=== PATIENT | male | born 1960 | race Caucasian/White ===

== ENCOUNTER 2022-05-03 12:48 | Inpatient (IN) ==
[2022-05-03 13:33] LABS: Basophils # (auto) 0.06 K/uL (0-0.2); Basophils % (auto) 0.9 %; Eosinophils # (auto) 0.16 K/uL (0-0.50); Eosinophils % (auto) 2.5 %; Hematocrit (blood only) 48.2 % (40.1-51.0); Immature Granulocytes # (auto) 0.05 K/uL (0.00-0.02); Immature Granulocytes % (auto) 0.8 %; Lymphocytes # (auto) 2.08 K/uL (1.2-3.4); Lymphocytes % (auto) 32.9 %; Mean Corpuscular Hemoglobin 29.8 pg (25.0-34.0); Mean Corpuscular Hgb Conc 35.3 g/dL (32.0-36.0); Mean Corpuscular Volume 84.6 fL (80.0-100.0); Mean Platelet Volume 9.5 fL (9.4-12.4); Monocytes # (auto) 0.52 K/uL (0.24-0.82); Monocytes % (auto) 8.2 %; Neutrophils # (auto) 3.45 K/uL (1.4-6.5); Neutrophils % (auto) 54.7 %; Platelet Count 201 K/uL (130-400); RDW Coefficient of Variation 11.5 % (11.5-14.5); RDW Standard Deviation 35.2 fL (36.4-46.3); White Blood Count 6.32 K/ul (4.8-10.8)
[2022-05-03 14:00] LABS: Albumin Globulin Ratio 1.6 (0.9-2); Albumin Level 4.2 gm/dl (3.4-5.0); BUN Creatinine Ratio 20.5 (10-20); Bilirubin,Total 0.5 mg/dl (0.2-1.0); Calcium 9.6 mg/dl (8.5-10.1); Creatinine Clr Calc Pharmacy 76.6 ml/min; Est GFR (Non-African American) 66.4 ml/min; Globulin 2.7 gm/dl (2.5-4.0); Potassium 4.1 mmol/L (3.5-5.1); Total Protein 6.9 gm/dl (6.0-8.3)
[2022-05-03] MEDS ORDERED: MoRPHine SULFATE 4 MG/ML 1 ML CARP\\VIAL IV STA (15:53)
[2022-05-03] MEDS ORDERED: ONDANSETRON INJ 2 MG/ML 2 ML VIAL IV STA (15:53)
[2022-05-03] MEDS ORDERED: MoRPHine SULFATE 10 MG/ML CARP/VIAL IV STA (17:35)
--- NOTE | 2022-05-03 17:40 | Emergency Department Note ---
History of Present Illness General Chief Complaint: Pain (Generalized) Stated Complaint: REF BY DOCTOR, PAIN Time Seen by Provider: 05/03/22 15:06 History of Present Illness Provider Complaint: back pain Onset (ago): week(s) 2 Duration: progressively worsening Similar Symptoms Previously: No Location: lumbar spine Quality: + sharp, + dull, + crushing, + aching, + spasming and + throbbing Radiation: none Severity: severe Relieved By: + immobilization Exacerbated By: + movement and + walking Context: no trauma, no history of kidney stones or no IV drug use Associated symptoms: no weakness, no numbness, no increased urinary urgency, no increased urinary frequency, no urinary incontinence, no fecal incontinence, no a change in bowel habits, no fever, no chills, no abdominal pain or no hematuria Patient reports he was seen in the emergency department at [place] yesterday had an MRI done follow-up with Dr. Charles's office who referred him to the emergency department today. Home Medications Medication Instructions Recorded Confirmed Type cyclobenzaprine 10 mg tablet 10 mg PO TID PRN Muscle Spasm 05/03/22 05/03/22 History gabapentin 300 mg capsule 300 mg PO TID 05/03/22 05/03/22 History hydrocodone 5 mg-acetaminophen 325 1 tab PO Q6 PRN Pain 05/03/22 05/03/22 History mg tablet Allergies Allergy/AdvReac Type Severity Reaction Status Date / Time No Known Allergies Allergy Unverified 05/03/22 17:47 Past Med/Surg History Medical History No pertinent family history No pertinent past medical history Surgical History No pertinent past surgical history Social History Smoking Status: Never smoker Feels Safe at Home: Yes Physical Exam Vital Signs Vital Signs - 24 hr 05/03/22 12:56 05/03/22 15:48 05/03/22 17:00 Temperature 37 C Temperature Source Temporal Artery Scan Pulse Rate 83 Pulse Rate [Finger] 73 62 Respiratory Rate 20 18 18 Respiratory Effort / Characteristics Non-Labored Spontaneous Non-Labored Non-Labored Respiratory Depth Normal Normal Normal Respiratory Pattern Regular Blood Pressure 148/84 H Blood Pressure [Right Arm] 138/79 123/78 Blood Pressure Mean 105 Blood Pressure Mean [Right Arm] 98 93 Blood Pressure Position Sitting Pulse Oximetry 96 97 93 Oxygen Delivery Method Room Air Sepsis Recent Fever Within 48 Hours No Sepsis New/Unexplained Change in Mental Status N/A Sepsis Action Taken by Nursing No Action Required Physical Exam GENERAL: He is oriented to person, place, and time. He appears well-developed and well-nourished. He does not appear distressed. NECK: Normal range of motion. Neck supple. No JVD present. No spinous process tenderness present. No carotid bruit present. No rigidity. No tracheal deviation and normal range of motion present. No Brudzinski's sign and no Kernig's sign noted. CV: Normal rate, regular rhythm, normal heart sounds and intact distal pulses. There is no peripheral edema. Palpable radial pulses bue. PULM/CHEST: Effort normal and breath sounds normal. No respiratory distress. No stridor. He has no wheezes. He has no rales. ABD: The abdomen is soft. Bowel sounds are normal. He has no distension. No mass is present. There is no tenderness. There is no rebound, no guarding, no Mu rphy's sign and no tenderness at McBurney's point. Rovsig negative. MUSC/SKEL:No pain on palpation of the C or T-spine. Pain on palpation L-spine. NEURO: Motor and sensation grossly intact. No saddle anesthesias or paresthesias. Course Course 1506: The patient was evaluated in room Triage 2. A complete history and physica l exam was performed Administered Medications Discontinued Medications Morphine Sulfate (Morphine Sulfate 4 Mg/Ml 1 Ml Carp\Vial) 4 mg IV NOW STA Stop: 05/03/22 15:54 Last Admin: 05/03/22 16:12 Dose: 4 mg Documented By: BRANDY Ondansetron HCl (Ondansetron Inj 2 Mg/Ml 2 Ml Vial) 4 mg IV NOW STA Stop: 05/03/22 15:54 Last Admin: 05/03/22 16:12 Dose: 4 mg Documented By: BRANDY Medical Decision Making Laboratory Data Result diagrams: 05/03/22 13:20 05/03/22 13:20 Lab Results 05/03/22 05/03/22 05/03/22 Range/Units 13:20 13:20 16:56 WBC 6.32 (4.8-10.8) K/ul RBC 5.70 (4.63-6.08) M/uL Hgb 17.0 (14.0-18.0) g/dl Hct 48.2 (40.1-51.0) % MCV 84.6 (80.0-100.0) fL MCH 29.8 (25.0-34.0) pg MCHC 35.3 (32.0-36.0) g/dL RDW Std Deviation 35.2 L (36.4-46.3) fL RDW Coeff of [place] 11.5 (11.5-14.5) % Plt Count 201 (130-400) K/uL MPV 9.5 (9.4-12.4) fL Immature Gran % (Auto) 0.8 % Neut % (Auto) 54.7 % Lymph % (Auto) 32.9 % [place] % (Auto) 8.2 % Eos % (Auto) 2.5 % Baso % (Auto) 0.9 % Neut # (Auto) 3.45 (1.4-6.5) K/uL Lymph # (Auto) 2.08 (1.2-3.4) K/uL [place] # (Auto) 0.52 (0.24-0.82) K/uL Eos # (Auto) 0.16 (0-0.50) K/uL Baso # (Auto) 0.06 (0-0.2) K/uL Immature Gran # (Auto) 0.05 H (0.00-0.02) K/uL Sodium 136 (136-145) mmol/L Potassium 4.1 (3.5-5.1) mmol/L Chloride 104 (98-107) mmol/L Carbon Dioxide 26 (21-32) mmol/L Anion Gap 6 (3-11) BUN 24 H (6-23) mg/dl Creatinine 1.17 (0.6-1.4) mg/dl Est Cr Clr Drug Dosing 76.6 ml/min Est GFR ( Amer) 77.0 ml/min Est GFR (Non-Af Amer) 66.4 ml/min BUN/Creatinine Ratio 20.5 H (10-20) Glucose 99 (70-99(Fasting)) mg/dl Calcium 9.6 (8.5-10.1) mg/dl Total Bilirubin 0.5 (0.2-1.0) mg/dl AST 22 (13-39) U/L ALT 29 (7-52) U/L Alkaline Phosphatase 69 (34-104) U/L Total Protein 6.9 (6.0-8.3) gm/dl Albumin 4.2 (3.4-5.0) gm/dl Globulin 2.7 (2.5-4.0) gm/dl Albumin/Globulin Ratio 1.6 (0.9-2) SARS-CoV-2, RNA, NAAT NEGATIVE (NEGATIVE) MDM Narrative Vital signs stable. External medical records were obtained and the patient had an MRI done at [facility] yesterday. MRI of the lumbar spine without contrast impression shows: lumbar degenerative disc disease most pronounced at L3-L4 L3-L4 disc bulge and right paracentral disc extrusion with extruded fragment migrates caudally along the right posterior border of the L4 vertebral body. Impingement upon the right transiting L4 nerve root with mild to moderate narrowing of the bilateral L3-L4 neural foramina. The study was read by Dr. Fleming on May 01, 2022. Discussed case with Dr. Charles and I read him the MRI reports creatinine. He states he will admit to his service and evaluate the patient for operative procedure tomorrow. Patient is agreement with the plan. Impression & Plan Bulging lumbar disc Discharge Plan Visit Data Chief Complaint: Pain (Generalized) Stated Complaint: REF BY DOCTOR, PAIN ED Provider: Paul Polanco Discharge Problem: Bulging lumbar disc Patient Disposition: Admitted As Inpatient Forms Stand Alone Forms: [facility] Prescriptions Prescriptions: No Action cyclobenzaprine 10 mg tablet 10 mg PO TID PRN (Reason: Muscle Spasm) prednisone 20 mg tablet 20 mg PO UD Rx Instructions: start 04/29/22 take 3 tablets daily x 3 days,then 2 tabs for 3 days,1 tablet for 3 days gabapentin 300 mg capsule 300 mg PO TID hydrocodone-acetaminophen 5-325 mg tablet 1 tab PO Q6 PRN (Reason: Pain) Referrals Referrals: Sergey Bernal M.D. [Primary Care Provider] -
[2022-05-03] MEDS ORDERED: NALOXONE HCL 0.4 MG/1 ML VIAL/CARP IV PRN (19:25)
[2022-05-03] MEDS ORDERED: ACETAMINOPHEN 1,000 MG/100 ML VIAL IV PRN (19:25)
[2022-05-03] MEDS ORDERED: HYDROmorphone INJ 0.5 MG/0.5 ML SYR IV PRN (19:25)
[2022-05-03] MEDS ORDERED: METOCLOPRAMIDE HCL INJ 5 MG/ML 2 ML VIAL IV PRN (19:25)
[2022-05-03] MEDS ORDERED: HYDROmorphone INJ 1 MG/ML SYRINGE IV PRN (19:25)
[2022-05-03] MEDS ORDERED: PROMETHAZINE HCL 12.5 MG in SODIUM CHLORIDE 0.9% 50 ML IV PRN (19:25)
[2022-05-03] MEDS ORDERED: traMADol HCL 50 MG TABLET PO PRN (19:25)
[2022-05-03] MEDS ORDERED: ONDANSETRON INJ 2 MG/ML 2 ML VIAL IV PRN (19:25)
[2022-05-03] MEDS ORDERED: ONDANSETRON 4 MG OD TAB PO PRN (19:25)
[2022-05-03] MEDS ORDERED: ACETAMINOPHEN 500 MG TAB PO PRN (19:25)
[2022-05-03] MEDS ORDERED: MAGNESIUM HYDROXIDE SUSP 30 ML UDC PO PRN (19:25)
[2022-05-03] MEDS ORDERED: LORazepam 2 MG/1 ML VIAL IV PRN (19:25)
[2022-05-03] MEDS: LACTATED RINGER'S 1,000 ML IV SCH (20:27)
--- NOTE | 2022-05-03 21:26 | XRay Report ---
XR chest 1V portable CLINICAL HISTORY: pre op TECHNIQUE: Single frontal radiograph of the chest was obtained. Comparison: None available at the time of this dictation. FINDINGS: No lines and tubes are seen. The cardiomediastinal silhouette is normal. The lungs are clear. No evid ence of pleural effusion or pneumothorax. IMPRESSION: No acute chest disease. ACT 112: Negative or not required by law. Electronically signed by: Frank Cao M.D. 05/03/2022 9:25 PM
--- NOTE | 2022-05-03 22:26 | Consultation Report ---
DATE OF CONSULTATION: 05/03/2022. CHIEF COMPLAINT: Severe back pain. HISTORY OF PRESENT ILLNESS: This is a 62-year-old male with no significant past medical history, who presents with back pain and ambulatory dysfunction. The patient states Sunday morning when he woke up, he could not get up from the bed because of severe back pain radiating to his right leg and looks like he went to [facility] and the MRI was done, which was showing disk bulge. Here he got admitted for spine surgery. Currently, the patient after receiving pain medication, he is feeling much better. He is able to move his legs. Denies any loss of sensation in the legs, no weakness in the legs, no incontinence of bowel or bladder. Afebrile. No recent heavy weight lifting or no injury. He says he used to work in the [employer] for 10 years. 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 The patient states that he is healthy. He goes for hunting and he is otherwise active. Resting comfortably currently. Denies any headache. No blurred visions, no earache, no runny nose, no sore throat, no cough, no difficulty swallowing. No chest pain, no shortness of breath, no nausea, no vomiting, no abdominal pain. Normal bowel and bladder movements. No hematuria or burning micturition. No blood in the stools or black stools. ALLERGIES: No known drug allergies. PAST MEDICAL HISTORY: None. PAST SURGICAL HISTORY: Appendectomy. MEDICATIONS: The patient states he is not taking any medications. FAMILY HISTORY: Denies any significant family history. SOCIAL HISTORY: No smoking. Alcohol, rarely. No drug use. REVIEW OF SYSTEMS: As per HPI. Rest of the review of systems is negative. PHYSICAL EXAMINATION: GENERAL: The patient is of moderate build, not in acute distress. VITAL SIGNS: Temperature 37, pulse 76, respiratory rate 18, blood pressure 122/77, oxygen 97% on room air. HEENT: Head is atraumatic. No facial droop. NECK: No JVD. No neck masses. CARDIOVASCULAR: S1 and S2 heard. Regular rate and rhythm. No murmur, no gallop. RESPIRATORY SYSTEM: Normal AP diameter. No accessory muscle use. No wheezing, crackles. ABDOMEN: Soft, bowel sounds present, nontender, no distention. CENTRAL NERVOUS SYSTEM: Alert and oriented. Speech is clear. No facial droop. Insight is good. Obeys simple commands. Moves extremities. EXTREMITIES: No edema, no erythema. MUSCULOSKELETAL: Bilateral straight leg test negative. LABORATORY DATA: WBC 6.3, hemoglobin 17, hematocrit 48.2, platelets 201. Sodium 136, potassium 4.1, chloride 104, bicarbonate 26, BUN 24, creatinine 1.1, serum glucose 99, calcium 9.6, total bilirubin 0.5, AST 22, ALT 29, alkaline phosphatase 69, total protein 6.9. SARS-CoV-2 rapid test negative. As per the ER, his MRI scan done at [facility] showed lumbar degenerative disk disease, most pronounced at L3-L4 and right paracentral disk extrusion with extruded fragment migrates caudally along the right posterior border of the L4 vertebral body, impingement upon the right transiting L4 nerve root with [id number] narrowing of the bilateral L3-L4 neural foramina. ASSESSMENT AND PLAN: This 62-year-old male presents with severe back pain and ambulatory dysfunction. 1. Severe back pain and ambulatory dysfunction. MRI down in the [facility] shows L3-L4 disk bulge and impingement of the right transiting L4 nerve root with [id number] narrowing of the bilateral L3-L4 neural foramina, . The patient has no significant medical history, otherwise he is active. Labs look okay,if preop chest x-ray and EKG are unremarkable should be at acceptable risk to proceed with surgery. Pain control, IV fluids, n.p.o. after midnight for now. 2. Deep venous thrombosis prophylaxis and disposition as per orthopedics. Job ID: [id number] [facility]
[2022-05-04] MEDS ORDERED: ceFAZolin 2000MG 2,000 MG/15 ML SYR IV SCH (06:00)
[2022-05-04] MEDS: LACTATED RINGER'S 1,000 ML IV SCH (07:47)
[2022-05-04] MEDS: oxyCODONE HCL IR 5 MG TAB (IMMEDIATE RELEASE) PO PRN ×2 (08:07→19:00)
--- NOTE | 2022-05-04 08:46 | History & Physical Report ---
Date of Service May 04, 2022 Assessment & Plan (1) Lumbar disc herniation with radiculopathy: Plan: Assessment lumbar disc herniation with radiculopathy. Plan at this time an MRI report has been provided. Described in distribution with caudal migration at L3-L4. This would be concordant with his pain patterns. As he is unable to ambulate and has severe pain he would be a candidate for surgical invention. It would require lumbar decompression discectomy at L3-L4. This may include possible fusion. Risk benefits pros cons alternatives were outlined in detail. I reviewed this with the patient and the at the bedside. We will make him n.p.o. after midnight plan for surgery tomorrow. Admission and Anticipated Discharge Date Admission Date: May 03, 2022 History of Present Illness Chief Complaint: Severe right leg pain with weakness Primary Care Provider: Sergey Bernal This a very pleasant 62-year-old man that presents with severe right leg pain and inability ambulate. He states been present for approximately 2 weeks and is worsened. He is not recall any specific trauma fall or event. 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 Pain involves the lumbosacral spine rating into the right buttock right leg and extending below the knee to the calf. Any weightbearing is intolerable. He gets some relief with his IV narcotics. He is admitted to the emergency room at least twice. Allergies Allergy/AdvReac Type Severity Reaction Status Date / Time No Known Allergies Allergy Unverified 05/03/22 17:47 Home Medications Medication Instructions Recorded Confirmed Type cyclobenzaprine 10 mg tablet 10 mg PO TID PRN Muscle Spasm 05/03/22 05/03/22 History gabapentin 300 mg capsule 300 mg PO TID 05/03/22 05/03/22 History hydrocodone 5 mg-acetaminophen 325 1 tab PO Q6 PRN Pain 05/03/22 05/03/22 History mg tablet Past Med/Surg History Medical History No pertinent family history No pertinent past medical history Surgical History No pertinent past surgical history Social History Smoking Status: Never smoker Hx Alcohol Use: No Hx Substance Use: No Preferred Language: [employer] Required: No Beliefs That Will Affect Care: None Current Living Situation: Spouse Other Information That Helps Us Care for You: No Feels Safe at Home: Yes Safety Concerns: Feels Safe At This Time Assistive Devices: None Physical Exam Physical Exam: On exam he is lying in bed. He has decreased sensation of the right thigh compared to the left to cold and light touch. He has plus out of 5 bilateral plantar flexion dorsiflexion extensor pollicis longus. He does exhibit severe tension signs with straight leg raising on the right as well as contralateral signs on the left. He is unable to get up and weight-bear on the right lower extremity secondary to pain. Results & Data Results & Data ([facility]) Vital Signs (Past 12 Hours) Vital Signs Temp Pulse Resp BP Pulse Ox O2 Del Method 05/04/22 07:17 36.7 C 53 L 16 129/80 98 Room Air 05/03/22 22:44 36.7 C 74 18 122/77 98 Room Air Code Status & VTE Plan VTE Prophylaxis Plan VTE Prophylaxis will be ordered: Yes
--- NOTE | 2022-05-04 13:30 | Hospitalist Progress Note ---
Date of Service May 04, 2022 Assessment & Plan (1) Lumbar disc herniation with radiculopathy: (2) Bulging lumbar disc: Plan: This is a 62-year-old male with no significant medical history presenting with lumbar back pain with radiculopathy. Seen and evaluated by Dr. Charles with recent outside hospital MRI report consistent with bulging lumbar disc with severe pain and plans for surgical intervention in a.m. Planned decompression discectomy at L3-L4 tomorrow morning N.p.o. after midnight IV fluids, pain control per primary service Preop chest x-ray and EKG without abnormality Revised cardiac risk and asked for preoperative risk score of 0 (3.9% risk) Thank you for this consultation. We will follow the patient with you during their hospital stay. You can reach a [facility] 20[facility]11 via [employer]. Admission and Anticipated Discharge Date Admission Date: May 03, 2022 Supervising Physician Co-Signing Physician Notes Patient seen and examined independently. Agree with above documentation by Mimi Rouse PA-C Patient is a 62-year-old male with no significant past medical history presents with lumbar radiculopathy. He is comfortable; pain controlled on current regimen. Is planned to undergo surgery tomorrow with decompression of L3-L4 and possible fusion by orthopedics. Will follow up during postoperative period. Subjective Patient seen and examined in 312. Still having lower back pain with radiation down right leg even at rest. Denies any paresthesias or weakness. Has never had a back surgery before. No fever, chills, lightheadedness, chest pain or shortness of breath, nausea, vomiting, abdominal pain, dysuria, diarrhea constipation. Review of Systems Review of Systems: At least ten systems reviewed and negative except as noted in the HPI. Physical Exam Physical Exam: Gen: WD/WN, NAD, lying in bed, A&Ox3 HEENT: Normocephalic, atraumatic, conjunctivae moist, sclerae anicteric, mucous membranes moist Lung: Clear to Auscultation bilaterally, no wheezes/rales/rhonchi Heart: Regular rate, regular rhythm, no murmurs, rubs, or gallops Abdomen: Soft, NT, ND +BS x 4 Extremities: +Lumbar spine TTP, 4/5 MINI in RLE, 5/5 LLE, no edema Skin: Warm, no rash Results & Data Results & Data ([place]) Vital Signs (Past 12 Hours) Vital Signs Temp Pulse Resp BP Pulse Ox O2 Del Method 05/04/22 07:17 36.7 C 53 L 16 129/80 98 Room Air Laboratory Results Short CBC 05/03/22 Range/Units 13:20 WBC 6.32 (4.8-10.8) K/ul Hgb 17.0 (14.0-18.0) g/dl Hct 48.2 (40.1-51.0) % Plt Count 201 (130-400) K/uL BMP 05/03/22 13:20 Sodium 136 Potassium 4.1 Chloride 104 Carbon Dioxide 26 BUN 24 H Creatinine 1.17 Glucose 99 Calcium 9.6 Liver Function 05/03/22 Range/Units 13:20 Total Bilirubin 0.5 (0.2-1.0) mg/dl AST 22 (13-39) U/L ALT 29 (7-52) U/L Alkaline Phosphatase 69 (34-104) U/L Albumin 4.2 (3.4-5.0) gm/dl Diagnostic Findings Chest X-Ray 05/03/22 20:23 XR chest 1V portable CLINICAL HISTORY: pre op TECHNIQUE: Single frontal radiograph of the chest was obtained. Comparison: None available at the time of this dictation. FINDINGS: No lines and tubes are seen. The cardiomediastinal silhouette is normal. The lungs are clear. No evidence of pleural effusion or pneumothorax. IMPRESSION: No acute chest disease. ACT 112: Negative or not required by law. Electronically signed by: Frank Cao M.D. 05/03/2022 9:25 PM
[2022-05-04 16:35] LABS: Appearance Urine Clear (Clear); Bilirubin Urine Negative (Negative); Blood Urine Negative (Negative); Color Urine Yellow; Glucose Urine UA Negative (Negative); Ketones Urine Negative (Negative); Leukocyte Esterase Urine Negative (Negative); Nitrite Urine Negative (Negative); Protein Urine Negative (Negative); Specific Gravity Urine 1.007 (1.000-1.030); Urobilinogen Urine Negative (Negative)
--- NOTE | 2022-05-04 17:35 | Anesthesiology Consultation ---
Date of Service May 04, 2022 Assessment & Plan (1) Encounter for pre-operative examination: Chart Review Chart Review: Acceptable Risk for Surgery and Patient NOT seen in Pre Admission Testing Consults Requested none History Surgery Operation Date: 05/05/22 13:15 Proposed Procedures p Decompression L3-L4, Possible Fusion - Surya Charles DO Height/Weight Height: 5 ft 9 in Weight: 98.7 kg Allergies Allergy/AdvReac Type Severity Reaction Status Date / Time No Known Allergies Allergy Unverified 05/03/22 17:47 Medications Home Medications Medication Instructions Recorded Confirmed Last Taken cyclobenzaprine 10 mg tablet 10 mg PO TID PRN Muscle Spasm 05/03/22 05/03/22 Unknown gabapentin 300 mg capsule 300 mg PO TID 05/03/22 05/03/22 Unknown hydrocodone 5 mg-acetaminophen 325 1 tab PO Q6 PRN Pain 05/03/22 05/03/22 Unknown mg tablet Active Medications Generic Name Dose Route Start Last Admin Trade Name Freq PRN Reason Stop Dose Admin Lactated Ringer's 1,000 mls @ 75 mls/hr 05/03/22 19:25 05/04/22 10:51 Lr IV 06/02/22 19:24 0 mls/hr .[id number] Infusion Oxycodone HCl 5 - 10 mg 05/03/22 19:25 05/04/22 08:07 Oxycodone Hcl Ir 5 Mg Tab (Immediate Release) PO 05/17/22 19:24 10 mg Q4H PRN Administration mod to severe pain Past Medical History Medical History Lumbar disc herniation with radiculopathy Past Surgical History Surgical History No pertinent past surgical history Social History Smoking Status: Never smoker Hx Alcohol Use: No Hx Substance Use: No substance use type: does not use Physical Exam Vital Signs Last Vital Signs Temp 36.5 C 05/04/22 14:18 Pulse 63 05/04/22 14:18 Resp 18 05/04/22 14:18 BP 133/77 05/04/22 14:18 Pulse Ox 95 05/04/22 14:18 O2 Del Method 05/04/22 14:18 Testing Laboratory Results 05/03/22 13:20 05/03/22 13:20 Urine Color Yellow 05/04/22 15:40 Urine Appearance Clear (Clear) 05/04/22 15:40 Urine pH 7.0 (4.5-7.5) 05/04/22 15:40 Ur Specific [place] 1.007 (1.000-1.030) 05/04/22 15:40 Urine Protein Negative (Negative) 05/04/22 15:40 Urine Glucose (UA) Negative (Negative) 05/04/22 15:40 Urine Ketones Negative (Negative) 05/04/22 15:40 Urine Nitrite Negative (Negative) 05/04/22 15:40 Ur Leukocyte Esterase Negative (Negative) 05/04/22 15:40 Blood Type B Negative 05/04/22 13:08 Antibody Screen NEGATIVE 05/04/22 13:08 Electrocardiogram Date: 05/04/22 Findings: + SB @ (50) Chest X-Ray Date: 05/03/22 XR chest 1V portable CLINICAL HISTORY: pre op TECHNIQUE: Single frontal radiograph of the chest was obtained. Comparison: None available at the time of this dictation. FINDINGS: No lines and tubes are seen. The cardiomediastinal silhouette is normal. The lungs are clear. No evidence of pleural effusion or pneumothorax. IMPRESSION: No acute chest disease. ACT 112: Negative or not required by law. Electronically signed by: Frank Cao M.D. 05/03/2022 9:25 PM Dictated:05/03/222124
--- NOTE | 2022-05-05 05:08 | Electrocardiogram Report ---
Test Reason : Blood Pressure : / mmHG Vent. Rate : 045 BPM Atrial Rate : 045 BPM P-R Int : 146 ms QRS Dur : 090 ms QT Int : 470 ms P-R-T Axes : 061 032 051 degrees QTc Int : 406 ms Sinus bradycardia Otherwise normal ECG No previous ECGs available Confirmed by Salinas Almeida ([id number]) on 05/05/2022 5:08:29 AM Referred By: Sergey Bernal Confirmed By:Salinas Almeida
--- NOTE | 2022-05-05 05:20 | Electrocardiogram Report ---
Test Reason : Blood Pressure : / mmHG Vent. Rate : 050 BPM Atrial Rate : 050 BPM P-R Int : 152 ms QRS Dur : 086 ms QT Int : 448 ms P-R-T Axes : 057 045 068 degrees QTc Int : 408 ms Sinus bradycardia Otherwise normal ECG When compared with ECG of 04-MAY-2022 04:23, No significant change was found Confirmed by Salinas Almeida ([id number]) on 05/05/2022 5:20:28 AM Referred By: Sergey Bernal Confirmed By:Salinas Almeida
[2022-05-05] MEDS: LACTATED RINGER'S 1,000 ML IV SCH ×4 (05:46→21:03)
--- NOTE | 2022-05-05 09:09 | History & Physical Bridge Note ---
Date of Service May 05, 2022 History & Physical Bridge Note I have examined the patient, reviewed the History & Physical and in the interval since the performance of the History & Physical I have noted the following changes of clinical significance: no changes noted Patient continues to have severe radiculopathy with progressive weakness recommending emergent lumbar decompression L3-L4
[2022-05-05] MEDS ORDERED: ePHEDrine sulfate 50 MG/ML AMP IV PRN (11:03)
[2022-05-05] MEDS ORDERED: HYDROmorphone INJ 1 MG/ML SYRINGE IV PRN ×2 (11:03→13:59)
[2022-05-05] MEDS ORDERED: fentaNYL citrate 100 MCG/2 ML VIAL IV PRN (11:03)
[2022-05-05] MEDS ORDERED: ATROPINE SULFATE 0.1 MG/ML 10ML SYR IV PRN (11:03)
[2022-05-05] MEDS ORDERED: ONDANSETRON INJ 2 MG/ML 2 ML VIAL IV PRN ×2 (11:03→13:59)
[2022-05-05] MEDS ORDERED: fentaNYL citrate 100 MCG/2 ML VIAL ONE ×2 (11:32→13:01)
[2022-05-05] MEDS ORDERED: MIDAZOLAM HCL 1 MG/ML 2ML VIAL ONE (11:32)
[2022-05-05] MEDS ORDERED: BUPIVACAINE/EPINEPHRINE 0.25% 1:200,000 30 ML VIAL ONE (11:53)
[2022-05-05] MEDS ORDERED: ceFAZolin 330 MG/ML 1 GM VIAL ONE (11:54)
[2022-05-05] MEDS ORDERED: PROPOFOL IV EMULSION 10 MG/ML 20 ML VIAL IV ONE (11:56)
[2022-05-05] MEDS ORDERED: ONDANSETRON INJ 2 MG/ML 2 ML VIAL ONE (11:56)
[2022-05-05] MEDS ORDERED: LIDOCAINE 2% MPF LOCAL 5 ML VIAL INFIL ONE (11:56)
[2022-05-05] MEDS ORDERED: DEXAMETHASONE SOD INJ 4 MG/ML VIAL ONE (11:56)
[2022-05-05] MEDS ORDERED: ROCURONIUM BROMIDE 10 MG/ML 5 ML VIAL IV ONE (11:56)
[2022-05-05] MEDS ORDERED: PHENYLEPHRINE HCL 10 MG/ML VIAL ONE (12:00)
--- NOTE | 2022-05-05 12:20 | Hospitalist Progress Note ---
Date of Service May 05, 2022 Assessment & Plan (1) Lumbar disc herniation with radiculopathy: (2) Bulging lumbar disc: Plan: This is a 62-year-old male with no significant medical history presenting with lumbar back pain with radiculopathy. Seen and evaluated by Dr. Charles with recent outside hospital MRI report consistent with bulging lumbar disc with severe pain and plans for surgical intervention in a.m. Planned decompression discectomy at L3-L4 today Keep NPO, IV fluids, pain control per primary service Preop chest x-ray and EKG without abnormality Revised cardiac risk and asked for preoperative risk score of 0 (3.9% risk) Thank you for this consultation. We will follow the patient with you during their hospital stay. You can [facility] via [email or web address]. Admission and Anticipated Discharge Date Admission Date: May 03, 2022 Supervising Physician Co-Signing Physician Notes Patient seen and examined independently. Agree with above documentation by Mimi Rouse PA-C. Patient to undergo decompression of L3-L4 for lumbar radiculopathy today Will follow-up post-op. Subjective Patient seen and examined in 312. Still having lower back pain with radiation down right leg even at rest. Denies any paresthesias or weakness. On the schedule for OR today. No fever, chills, lightheadedness, chest pain or shortness of breath, nausea, vomiting, abdominal pain, dysuria, diarrhea or constipation. Review of Systems Review of Systems: At least ten systems reviewed and negative except as noted in the HPI. Physical Exam Physical Exam: Gen: WD/WN, NAD, lying in bed, A&Ox3 HEENT: Normocephalic, atraumatic, conjunctivae moist, sclerae anicteric, mucous membranes moist Lung: Clear to Auscultation bilaterally, no wheezes/rales/rhonchi Heart: Regular rate, regular rhythm, no murmurs, rubs, or gallops Abdomen: Soft, NT, ND +BS x 4 Extremities: +Lumbar spine TTP, 4/5 MINI in RLE, 5/5 LLE, no edema Skin: Warm, no rash Results & Data Results & Data ([facility]) Vital Signs (Past 12 Hours) Vital Signs Temp Pulse Resp BP Pulse Ox O2 Del Method 05/05/22 10:41 36.2 C L 62 20 148/88 H 99 Room Air 05/05/22 08:05 36.7 C 51 L 17 125/77 97 Room Air 05/05/22 07:45 37 C 50 L 16 119/71 98 Room Air Laboratory Results Urine 05/04/22 Range/Units 15:40 Urine Color Yellow Urine Appearance Clear (Clear) Urine pH 7.0 (4.5-7.5) Ur Specific [place] 1.007 (1.000-1.030) Urine Protein Negative (Negative) Urine Glucose (UA) Negative (Negative) Diagnostic Findings Chest X-Ray 05/03/22 20:23 XR chest 1V portable CLINICAL HISTORY: pre op TECHNIQUE: Single frontal radiograph of the chest was obtained. Comparison: None available at the time of this dictation. FINDINGS: No lines and tubes are seen. The cardiomediastinal silhouette is normal. The lungs are clear. No evidence of pleural effusion or pneumothorax. IMPRESSION: No acute chest disease. ACT 112: Negative or not required by law. Electronically signed by: Frank Cao M.D. 05/03/2022 9:25 PM
[2022-05-05] MEDS ORDERED: FLOSEAL HEMOSTATIC MATRIX 10ML TOP ONE (12:36)
[2022-05-05] MEDS ORDERED: NEOSTIGMINE METHYLSULFATE 1 MG/ML 10ML VIAL ONE (12:42)
[2022-05-05] MEDS ORDERED: GLYCOPYRROLATE 0.2 MG/ML VIAL ONE (12:42)
--- NOTE | 2022-05-05 13:15 | Operative Report ---
Post Operative Report Pre & Post Diagnosis Operation Date: 05/05/22 13:15 Pre-Op Diagnosis: Lumbar Disc Herniation with Radiculopathy L3-L4 Post-Op Diagnosis: Lumbar Disc Herniation with Radiculopathy L3-L4 I identified the patient and participated in the time-out.: Yes Procedure Operation Date: 05/05/22 13:15 Actual Procedures Lumbar laminotomy L3-L4 on the right Surgeon Surya Charles, DO Folder Inspector none Estimated Blood Loss 5 Findings Consistent with Post-Op Diagnosis Specimens None Indications This is a 60-year-old male who presents above-mentioned diagnosis. He presents with marked progressive neurologic decline is here for urgent decompression and discectomy. Description of Procedure Patient was met with preoperatively Case discussed all questions addressed with the patient was taken back to upper suite underwent a patient placed in a prone position jacks table top Jeremy frame. All bony prominences well-padded eyes inspected to ensure no external pressure placed upon them. This point the lumbar spine was prepped and draped in a sterile fashion. With the assistance of fluoroscopy I identified the L3-L4 disc space and a midline incision was created overlying this region and expose the interlaminar space at L3-L4 on the right. Self-retaining tractors placed. Small laminotomy was created and excised the lateral portion of ligamentum flavum to expose a severely compressed traversing L4 nerve root. I was able to mobilize this medially and address alejo ral free fragments of disc material. There was explored several times to ensure all fragments addressed. It was then copiously irrigated and closed with subcutaneous Vicryl and 4 Monocryl for final skin closure. Steri-Strips dressings placed. Patient waken taken to PACU in stable condition. I attest to the content of the Intraoperative Record and any orders documented therein. Any exceptions are noted below.
--- NOTE | 2022-05-05 13:18 | Fluoroscopy Report ---
INTRAOPERATIVE RADIOGRAPH CLINICAL HISTORY: L3-L4 spinal surgery. Fluoroscopy time: 9 seconds. FINDINGS: A single spot fluoroscopic image of the lower lumbar spine is presented. A surgical probe p rojects posteriorly at the superior endplate of L4. IMPRESSION: Intraoperative image from lumbar spinal surgery as above. Electronically signed by: Neymar Laughlin M.D. 05/05/2022 1:17 PM
--- NOTE | 2022-05-05 13:56 | Anesthesiology Progress Note ---
Date of Service May 05, 2022 Anesthesia Post Procedure Vital Signs Vital Signs: Temp Pulse Resp BP BP Pulse Ox O2 Del Method 05/05/22 13:35 57 L 18 140/84 99 Oxymask 05/05/22 13:45 36.8 C 57 L 12 129/77 95 Room Air 05/05/22 13:25 52 L 6 L 132/77 97 Oxymask 05/05/22 13:15 36.1 C L 59 L 12 130/73 99 Oxymask 05/05/22 10:41 36.2 C L 62 20 148/88 H 99 Room Air 05/05/22 08:05 36.7 C 51 L 17 125/77 97 Room Air 05/05/22 07:45 37 C 50 L 16 119/71 98 Room Air 05/04/22 20:34 36.7 C 60 18 138/77 98 Room Air 05/04/22 14:18 36.5 C 63 18 133/77 95 Room Air O2 Flow Rate 05/05/22 13:35 2 05/05/22 13:45 05/05/22 13:25 3 05/05/22 13:15 5 05/05/22 10:41 05/05/22 08:05 05/05/22 07:45 05/04/22 20:34 05/04/22 14:18 Pain Intensity Lower Back: Pain Intensity: 1 Transfer of Care Handoff Completed per policy Notes Mental Status: alert / awake / arousable and participated in evaluation Patient Amnestic to Procedure: Yes Nausea / Vomiting: adequately controlled Pain: adequately controlled Airway Patency, RR, SpO2: stable & adequate BP & HR: stable & adequate Hydration State: stable & adequate Anesthetic Complications: no major complications apparent and Pt Satisfied with anesthetic care
[2022-05-05] MEDS ORDERED: SOD PHOSPHATE/SOD BIPHOSPHATE ENEMA 132 ML BTL PR PRN (13:59)
[2022-05-05] MEDS ORDERED: FAMOTIDINE 20 MG TAB PO PRN (13:59)
[2022-05-05] MEDS ORDERED: ACETAMINOPHEN 500 MG TAB PO PRN (13:59)
[2022-05-05] MEDS ORDERED: diphenhydrAMINE Capsule 25 MG CAP PO PRN (13:59)
[2022-05-05] MEDS ORDERED: ALUMINUM/MAGNESIUM SUSP 30 ML UDC PO PRN (13:59)
[2022-05-05] MEDS ORDERED: DO NOT ADMINISTER FLU VACCINE PRN (13:59)
[2022-05-05] MEDS ORDERED: METOCLOPRAMIDE HCL INJ 5 MG/ML 2 ML VIAL IV PRN (13:59)
[2022-05-05] MEDS ORDERED: hydrOXYzine HCl 25 MG TAB PO PRN (13:59)
[2022-05-05] MEDS ORDERED: LORazepam 2 MG/1 ML VIAL IV PRN (13:59)
[2022-05-05] MEDS ORDERED: MAGNESIUM HYDROXIDE SUSP 30 ML UDC PO PRN (13:59)
[2022-05-05] MEDS ORDERED: PROMETHAZINE HCL 12.5 MG in SODIUM CHLORIDE 0.9% 50 ML IV PRN (13:59)
[2022-05-05] MEDS ORDERED: ONDANSETRON 4 MG OD TAB PO PRN (13:59)
[2022-05-05] MEDS ORDERED: LORazepam 0.5 MG TAB PO PRN (13:59)
[2022-05-05] MEDS ORDERED: NALOXONE HCL 0.4 MG/1 ML VIAL/CARP IV PRN (13:59)
[2022-05-05] MEDS ORDERED: DO NOT ADMINISTER PNEUMOCOCCAL VACCINE PRN (13:59)
[2022-05-05] MEDS ORDERED: ACETAMINOPHEN 1,000 MG/100 ML VIAL IV PRN (13:59)
[2022-05-05] MEDS ORDERED: HYDROmorphone INJ 0.5 MG/0.5 ML SYR IV PRN (13:59)
[2022-05-05] MEDS ORDERED: bisacodyL 10 MG SUPP PR PRN (13:59)
[2022-05-05] MEDS: oxyCODONE HCL IR 5 MG TAB (IMMEDIATE RELEASE) PO PRN ×2 (14:21→23:21)
[2022-05-05] MEDS: GABAPENTIN 300 MG CAP PO SCH ×2 (15:09→21:07)
[2022-05-05] MEDS ORDERED: DOCUSATE SODIUM/SENNA 50/8.6MG TAB PO SCH (21:00)
[2022-05-05] MEDS: ceFAZolin 2000MG 2,000 MG/15 ML SYR IV SCH (21:07)
[2022-05-06] MEDS: ceFAZolin 2000MG 2,000 MG/15 ML SYR IV SCH (05:00)
[2022-05-06 06:00] LABS: Hematocrit (blood only) 46.2 % (40.1-51.0); Hemoglobin 16.1 g/dl (14.0-18.0); Mean Corpuscular Hemoglobin 29.4 pg (25.0-34.0); Mean Corpuscular Hgb Conc 34.8 g/dL (32.0-36.0); Mean Corpuscular Volume 84.5 fL (80.0-100.0); Mean Platelet Volume 9.7 fL (9.4-12.4); Platelet Count 206 K/uL (130-400); RDW Coefficient of Variation 11.4 % (11.5-14.5); RDW Standard Deviation 34.6 fL (36.4-46.3); Red Blood Count 5.47 M/uL (4.63-6.08); White Blood Count 16.71 K/ul (4.8-10.8)
[2022-05-06] MEDS ORDERED: POLYETHYLENE (MIRALAX) 17 GM PACK PO SCH (06:00)
[2022-05-06 06:26] LABS: BUN Creatinine Ratio 13.7 (10-20); Calcium 9.1 mg/dl (8.5-10.1); Creatinine Clr Calc Pharmacy 71.6 ml/min; Est GFR (African American) 71.8 ml/min; Est GFR (Non-African American) 61.9 ml/min; Potassium 4.4 mmol/L (3.5-5.1)
--- NOTE | 2022-05-06 08:19 | Discharge Summary ---
Date of Service May 06, 2022 Admission HPI Per Admitting Provider This a very pleasant 62-year-old man that presents with severe right leg pain and inability ambulate. He states been present for approximately 2 weeks and is worsened. He is not recall any specific trauma fall or event. 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 Pain involves the lumbosacral spine rating into the right buttock right leg and extending below the knee to the calf. Any weightbearing is intolerable. He gets some relief with his IV narcotics. He is admitted to the emergency room at least twice. Principal Diagnosis Lumbar disc herniation with radiculopathy Discharge Data Allergies Allergy/AdvReac Type Severity Reaction Status Date / Time No Known Allergies Allergy Unverified 05/03/22 17:47 Consultations 05/03/22 16:41 ED Decision to Admit Stat 05/03/22 19:25 Consult Internal Medicine Routine Procedures Performed Operation Date: 05/05/22 13:15 Actual Procedures p Decompression L3-L4(Not Applicable) - Surya Charles DO Ordered Studies 05/05/22 FL spine 1V any level Routine Hospital Course (1) Lumbar disc herniation with radiculopathy: Patient was admitted with severe radiculopathy and progressive neuro deficit. Subsequent underwent lumbar laminotomy excision of herniated fragments. He Targis well on postop day 1 was up and ambulating pain markedly improved subsequently discharged home. Discharge orders instructions from the chart for review. Total Time Total Time Spent Total Time Spent (In Minutes): 20 minutes Discharge Plan Discharge Items Patient Disposition: Home - Self-Care Reason For Visit: POSTOP Discharge Diagnosis: Lumbar disc condition with radiculopathy Activity: As commented below Non-emergency contact: Primary Care Provider Call non-emergency contact if: you have any medication questions Follow-up/Referrals: Sergey Bernal M.D. [Primary Care Provider] - Diet: Regular Addtl Attending Provider Instructions: ACTIVITY RECOMMENDATIONS: SELF CARE INSTRUCTIONS AFTER A LAMINECTOMY 1. No prolonged sitting (less than 30 minutes for the first 3 weeks after surgery). 2. No bending, lifting more than 5 pounds, or twisting (roll like a log when turning in bed). 3. You may shower 3 days after surgery if no drainage from wound. Thoroughly dry wound. Do not soak in the tub. 4. Please walk as much as you can for exercise. Gradually increase the distance that you walk as your endurance increases. 5. You may drive in 7-10 days if you are comfortable and no longer requiring pain medications. SPECIAL CARE INSTRUCTIONS: VERY IMPORTANT TO READ AND REVIEW A. Your surgical incision has been closed with a cosmetic suture under the skin that will dissolve in about 6 weeks. In 14 days, you can use a pair of clean scissors and cut the suture that is left outside of the skin at the ends of your incision. B. Complications are uncommon, but please contact us if you have any signs or symptoms of: 1. wound infection (fever higher than 102.5 degrees F, redness, separation of wound, drainage, or increasing pain from the incision) 2. blood clots in legs (pain, swelling, redness and warmth in legs) 3. urinary tract infection (fever higher than 102.5 degrees, burning upon urination or increased frequency of urination) 4. nerve problems (inability to walk on your toes or heels, numbness, loss of bowel or bladder control) 5. any other symptoms that concern you. C. Please call the office at if you have any concerns or questions about your operation or recovery. MANAGING PAIN AFTER SPINAL SURGERY 1. Narcotic medication is intended for short-term use and will be provided for surgical pain. Surgical pain usually lasts for a period of 4-6 weeks. Narcotic medication includes Percocet, Vicodin, Darvocet, Tylenol #3 or Lortab. 2. Longer-term pain is more appropriately treated with non-narcotic medication such as Tylenol ES. 3. Muscle spasm is not appropriately treated with narcotics. Muscle relaxers such as Soma, Flexeril or Skelaxin can be used along with Tylenol ES. 4. Remember that we all live with some "aches and pains". This is not unusual or uncommon after an injury or as we get older. 5. We will provide appropriate medication within the normal guidelines of their prescribed use. We will also be very cautious and aware of potential abuse and extended duration of patients' medication needs. 6. Please allow 2-3 days to process refills. Prescriptions will not be mailed but must be picked up at the office. FOLLOW UP VISIT: Keep your scheduled follow-up appointment. Any questions, please call the office at . Pending Studies at Discharge: No Stand-Alone Forms: My [facility], Smoking Cessation Medications and DC Order Prescriptions: New hydrocodone-acetaminophen 5-325 mg tablet 1 tab PO Q6H PRN (Reason: pain) Qty: 30 0RF Rx Instructions: 1 tab PO PRN; Continued cyclobenzaprine 10 mg tablet 10 mg PO TID PRN (Reason: Muscle Spasm) gabapentin 300 mg capsule 300 mg PO TID hydrocodone-acetaminophen 5-325 mg tablet 1 tab PO Q6 PRN (Reason: Pain) Discharge Orders: Discharge Order (Routine); Ordered 05/06/22 Ordered By: Surya Charles Admission Data Admit Date/Time: 05/03/22 16:46 Attending Provider: Surya Charles Admit Provider: Surya Charles Primary Care Provider: Sergey Bernal Other Providers: Yariel Jones ; Mimi Rouse ; Surya Charles ; Sandi Montemayor
[2022-05-06] MEDS: GABAPENTIN 300 MG CAP PO SCH (08:29)
--- NOTE | 2022-05-06 10:52 | Hospitalist Progress Note ---
Date of Service May 06, 2022 Assessment & Plan (1) Lumbar disc herniation with radiculopathy: (2) Bulging lumbar disc: Plan: This is a 62-year-old male with no significant medical history presenting with lumbar back pain with radiculopathy. Patient underwent decompression of L3-L4 on 05/05 for lumbar disc herniation with radiculopathy Immediate postoperative period was uncomplicated. WBC 16; likely stress related. [id number]. Pain control as per primary. Follow-up with primary care doctor every 6 months. Thank you for this consultation. We will follow the patient with you during their hospital stay. You can reach a member of the [facility] Hospitalist Team 20/11 via AudioTag. Admission and Anticipated Discharge Date Admission Date: May 03, 2022 Subjective Patient seen and examined at bedside. He is sitting up on the chair eating breakfast; not in any distress. Reports that pain has significantly improved after the procedure. He is passing gas; no bowel movement yet. Review of Systems Review of Systems: All systems reviewed & are unremarkable except as noted in Subjective Results & Data Results & Data ([facility]) Vital Signs (Past 12 Hours) Vital Signs Temp Pulse Resp BP BP Pulse Ox O2 Del Method 05/06/22 09:50 36.7 C 66 17 123/72 150/93 H 98 05/06/22 07:20 36.7 C 66 17 150/93 H 98 Room Air 05/06/22 02:47 36.8 C 68 18 123/72 96 Room Air 05/05/22 23:01 36.9 C 67 16 144/78 H 96 Room Air Laboratory Results Laboratory Results WBC 16.71 K/ul (4.8-10.8) H 05/06/22 05:41 RBC 5.47 M/uL (4.63-6.08) 05/06/22 05:41 Hgb 16.1 g/dl (14.0-18.0) 05/06/22 05:41 Hct 46.2 % (40.1-51.0) 05/06/22 05:41 MCV 84.5 fL (80.0-100.0) 05/06/22 05:41 MCH 29.4 pg (25.0-34.0) 05/06/22 05:41 MCHC 34.8 g/dL (32.0-36.0) 05/06/22 05:41 RDW Std Deviation 34.6 fL (36.4-46.3) L 05/06/22 05:41 RDW Coeff of Quinton 11.4 % (11.5-14.5) L 05/06/22 05:41 Plt Count 206 K/uL (130-400) 05/06/22 05:41 MPV 9.7 fL (9.4-12.4) 05/06/22 05:41 Immature Gran % (Auto) 0.8 % 05/03/22 13:20 Neut % (Auto) 54.7 % 05/03/22 13:20 Lymph % (Auto) 32.9 % 05/03/22 13:20 Ford % (Auto) 8.2 % 05/03/22 13:20 Eos % (Auto) 2.5 % 05/03/22 13:20 Baso % (Auto) 0.9 % 05/03/22 13:20 Neut # (Auto) 3.45 K/uL (1.4-6.5) 05/03/22 13:20 Lymph # (Auto) 2.08 K/uL (1.2-3.4) 05/03/22 13:20 Ford # (Auto) 0.52 K/uL (0.24-0.82) 05/03/22 13:20 Eos # (Auto) 0.16 K/uL (0-0.50) 05/03/22 13:20 Baso # (Auto) 0.06 K/uL (0-0.2) 05/03/22 13:20 Immature Gran # (Auto) 0.05 K/uL (0.00-0.02) H 05/03/22 13:20 Sodium 137 mmol/L (136-145) 05/06/22 05:41 Potassium 4.4 mmol/L (3.5-5.1) 05/06/22 05:41 Chloride 101 mmol/L (98-107) 05/06/22 05:41 Carbon Dioxide 30 mmol/L (21-32) 05/06/22 05:41 Anion Gap 6 (3-11) 05/06/22 05:41 BUN 17 mg/dl (6-23) 05/06/22 05:41 Creatinine 1.24 mg/dl (0.6-1.4) 05/06/22 05:41 Est Cr Clr Drug Dosing 71.6 ml/min 05/06/22 05:41 Est GFR ( Amer) 71.8 ml/min 05/06/22 05:41 Est GFR (Non-Af Amer) 61.9 ml/min 05/06/22 05:41 BUN/Creatinine Ratio 13.7 (10-20) 05/06/22 05:41 Glucose 121 mg/dl (70-99(Fasting)) H 05/06/22 05:41 Calcium 9.1 mg/dl (8.5-10.1) 05/06/22 05:41 Total Bilirubin 0.5 mg/dl (0.2-1.0) 05/03/22 13:20 AST 22 U/L (13-39) 05/03/22 13:20 ALT 29 U/L (7-52) 05/03/22 13:20 Alkaline Phosphatase 69 U/L (34-104) 05/03/22 13:20 Total Protein 6.9 gm/dl (6.0-8.3) 05/03/22 13:20 Albumin 4.2 gm/dl (3.4-5.0) 05/03/22 13:20 Globulin 2.7 gm/dl (2.5-4.0) 05/03/22 13:20 Albumin/Globulin Ratio 1.6 (0.9-2) 05/03/22 13:20 Urine Color Yellow 05/04/22 15:40 Urine Appearance Clear (Clear) 05/04/22 15:40 Urine pH 7.0 (4.5-7.5) 05/04/22 15:40 Ur Specific Amb[place] 1.007 (1.000-1.030) 05/04/22 15:40 Urine Protein Negative (Negative) 05/04/22 15:40 Urine Glucose (UA) Negative (Negative) 05/04/22 15:40 Urine Ketones Negative (Negative) 05/04/22 15:40 Urine Blood Negative (Negative) 05/04/22 15:40 Urine Nitrite Negative (Negative) 05/04/22 15:40 Urine Bilirubin Negative (Negative) 05/04/22 15:40 Urine Urobilinogen Negative (Negative) 05/04/22 15:40 Ur Leukocyte Esterase Negative (Negative) 05/04/22 15:40 SARS-CoV-2, RNA, NAAT NEGATIVE (NEGATIVE) 05/03/22 16:56 Blood Type B Negative 05/04/22 13:08 Antibody Screen NEGATIVE 05/04/22 13:08 Impressions Chest X-Ray 05/03/22 20:23 XR chest 1V portable CLINICAL HISTORY: pre op TECHNIQUE: Single frontal radiograph of the chest was obtained. Comparison: None available at the time of this dictation. FINDINGS: No lines and tubes are seen. The cardiomediastinal silhouette is normal. The lungs are clear. No evidence of pleural effusion or pneumothorax. IMPRESSION: No acute chest disease. ACT 112: Negative or not required by law. Electronically signed by: Frank Cao M.D. 05/03/2022 9:25 PM Spine X-Ray 05/05/22 00:00 INTRAOPERATIVE RADIOGRAPH CLINICAL HISTORY: L3-L4 spinal surgery. Fluoroscopy time: 9 seconds. FINDINGS: A single spot fluoroscopic image of the lower lumbar spine is presented. A surgical probe projects posteriorly at the superior endplate of L4. IMPRESSION: Intraoperative image from lumbar spinal surgery as above. Electronically signed by: Neymar Laughlin M.D. 05/05/2022 1:17 PM
== END 2022-05-06 10:40 | disposition home or self-care (01) | DRG 520 ==
LOC: ED 12:48 → 3E 16:46
DX: M51.16 Intervertebral disc disorders with radiculopathy, lumbar region